=== PATIENT | female | born 1995 ===

== ENCOUNTER → 2017-04-21 | Outpatient (REF) | LOC: WSOH 10:23 | DX: Z01.89 Encounter for other specified special examinations (principal) ==

== ENCOUNTER → 2017-04-24 | Outpatient (REF) | LOC: WSOH 10:27 | DX: Z02.89 Encounter for other administrative examinations (principal) ==

== ENCOUNTER → 2017-04-28 | Outpatient (REF) | LOC: WSOH 13:03 | DX: Z01.89 Encounter for other specified special examinations (principal) ==

== ENCOUNTER → 2017-04-28 | Outpatient (REF) | LOC: WSOH 13:54 | DX: Z01.89 Encounter for other specified special examinations (principal) ==